=== PATIENT | female | born 1955 ===

== ENCOUNTER 2018-01-23 11:14 | Outpatient (CLI) | payer OTHER | END 2018-01-23 11:27 | disposition home or self-care (01) | LOC: MAMO-SONO 11:14 → MAMO 607 11:15 → MAMO-SONO 11:27 → NUCLEAR 14:00 | DX: Z12.31 Encounter for screening mammogram for malignant neoplasm of breast (principal); N62 Hypertrophy of breast ==

== ENCOUNTER 2018-01-23 12:58 | Outpatient (CLI) | payer OTHER | END 2018-01-23 13:00 | disposition home or self-care (01) | LOC: NUCLEAR 12:58 | DX: M81.0 Age-related osteoporosis without current pathological fracture (principal) ==

== ENCOUNTER 2018-01-30 12:49 | Emergency (ER) | payer OTHER ==
[~2018-01-30] VITALS: Ht 152.4 cm; Wt 61.2 kg
[2018-01-30] MEDS ORDERED: COZAAR50 MG (13:02)
== END 2018-01-30 17:49 | disposition home or self-care (01) ==
LOC: ER 12:49 → CPU-OBS 13:11 → ER 17:49
DX: R00.2 Palpitations (principal); F06.4 Anxiety disorder due to known physiological condition
CPT/HCPCS: G0378; G0379; 93005

== ENCOUNTER 2021-10-21 10:54 | Outpatient (CLI) | payer OTHER ==
[~2021-10-21 10:54] MED LIST: COZAAR50 MG
== END 2021-10-21 11:05 | disposition home or self-care (01) ==
LOC: MAMO-SONO 10:54
PROVIDERS: ATTEND Internal Medicine Cardiovascular Disease
DX: N63.11 Unspecified lump in the right breast, upper outer quadrant (principal)